=== PATIENT | female | born 1990 | race Hispanic/Latino ===

== ENCOUNTER 2017-04-11 19:15 | Observation (INO) | payer OTHER ==
[2017-04-11 19:37] VITALS: BP 128/79; PULSE 86; RESP 17; TEMP 97.9; O2SAT 98
--- NOTE | 2017-04-11 19:58 | ED PDOC ---
HPI: Psych/Substance Abuse Time Seen by Provider: 04/11/17 19:37 Chief Complaint (Nursing): Alcohol Ingestion Chief Complaint (Provider): "Yes" ED Caveat: Intoxicated History Per: EMS History/Exam Limitations: intoxication Onset/Duration Of Symptoms: Unknown Modifying Factor(s): Alcohol Additional History Per: EMS Additional Complaint(s): 26 yo F w unknown PMHx presents to ER via EMS for apparent etoh intoxication. She is currently lying on her left lateral, not awake, but is arousable to physical movement. She does deny any allergies, home medications, medical conditions, and medical/surgical history. She is unable to provide well formed answers, but can answer yes/no to pointed questions. She has a strong odor of alcohol on her breath and has vomit covering most of her clothing. As per EMS, she had been riding in a cab, visibly intoxicated, and vomited during the ride. She was removed by the cable assembler who called EMS. Past Medical History Vital Signs: Last Vital Signs Temp 97.9 F 04/11/17 19:35 Pulse 86 04/11/17 19:35 Resp 17 04/11/17 19:35 BP 128/79 04/11/17 19:35 Pulse Ox 98 04/11/17 19:35 - Family History Family History: States: No Known Family Hx - Allergies Allergies/Adverse Reactions: Allergies Allergy/AdvReac Type Severity Reaction Status Date / Time Unobtainable Allergy Verified 04/11/17 19:37 Review of Systems Review Of Systems: ROS cannot be obtained secondary to pt's inabilty to answer questions. Physical Exam - Reviewed Nursing Documentation Reviewed: Yes Vital Signs Reviewed: Yes - Physical Exam Appears: Positive for: No Acute Distress Head Exam: Positive for: ATRAUMATIC (no wounds, lacs, signs of trauma), NORMOCEPHALIC Skin: Positive for: Normal Color (no lacs, abrasions, wounds, contusions, or erythema noted), Warm, Dry. Negative for: Diaphoresis, Rash Eye Exam: Positive for: Normal appearance, PERRL Neck: Positive for: Supple, Trachea Midline Cardiovascular/Chest: Positive for: Regular Rate, Rhythm. Negative for: Edema Respiratory: Positive for: Normal Breath Sounds. Negative for: Stridor, Wheezing Pulses-Post. Tibialis (L): 2+ Pulses-Post. Tibialis (R): 2+ Pulses-Radial (L): 2+ Pulses-Radial (R): 2+ Gastrointestinal/Abdominal: Positive for: Bowel Sounds, Soft. Negative for: Tenderness, Distended, Guarding Back: Positive for: Normal Inspection (no wounds, contusions, lacs). Negative for: Vertebral Tenderness Extremity: Negative for: Pedal Edema, Calf Tenderness - Laboratory Results Result Diagrams: 04/11/17 20:46 04/11/17 20:46 - ECG O2 Sat by Pulse Oximetry: 98 - Progress ED Course And Treament: 26 yo F w unknown PMHx presents to ER via EMS for apparent etoh intoxication -CBC -CMP -etoh lvl -Upreg -NS 1L x1 -Zofran 4mg x1 -Will re evaluate patient shortly; Will re examine patient shortly for possibly different HPI or histories Update 2300: -Confirmed no known PMHx, no home medications, and benign HPI other than etoh consumption Disposition - Clinical Impression Clinical Impression: Alcohol intoxication - Disposition Disposition: Routine/Home Disposition Time: 01:30 Condition: STABLE
[2017-04-11] MEDS ORDERED: Sodium Chloride 0.9% 1,000 ML IV SCH (20:00)
[2017-04-11 20:51] LABS: HEMATOCRIT 39.8 % (34.0-47.0); MEAN CELL VOLUME 88.6 fl (81.0-99.0); MEAN CORPUSCULAR HEMOGLOBIN 29.6 pg (27.0-31.0); MEAN CORPUSCULAR HGB CONC 33.4 g/dL (33.0-37.0); RED CELL DISTRIBUTION WIDTH 13.5 % (11.5-14.5); WHITE BLOOD COUNT 6.3 K/uL (4.8-10.8)
[2017-04-11 21:01] LABS: ALB/GLOB RATIO 1.2 (1.0-2.1); ALKALINE PHOSPHATASE 43 U/L (38-126); ALT/SGPT 32 U/L (9-52); AST/SGOT 38 U/L (14-36); BILIRUBIN,TOTAL 0.1 mg/dl (0.2-1.3); BLOOD UREA NITROGEN 17 mg/dl (7-17); CALCIUM 8.3 mg/dL (8.4-10.2); CARBON DIOXIDE 23 mmol/L (22-30); GFR AFRICAN-AMERICAN > 60; GLUCOSE,RANDOM 95 mg/dL (65-105); POTASSIUM 3.6 MMOL/L (3.6-5.0); SODIUM 140 mmol/l (132-148); TOTAL PROTEIN 7.7 G/DL (6.3-8.2)
[2017-04-11 21:02] LABS: CHLORIDE 103 mmol/L (98-107)
[2017-04-11 21:10] LABS: ALCOHOL SERUM 347 mg/dl (0-10)
--- NOTE | 2017-04-12 01:23 | ED PDOC ---
- Laboratory Results Result Diagrams: 04/11/17 20:46 04/11/17 20:46 - ECG O2 Sat by Pulse Oximetry: 98 Medical Decision Making Medical Decision Making: Patien signed out to provider by Dr Bryant; pending sobriety At 1:15AM pt is AAO x3 and has steady gait with clear speech Patient is stable for dc home DX Alcohol intoxication Disposition - Clinical Impression Clinical Impression: Alcohol intoxication - POA Present On Arrival: None - Disposition Disposition: Routine/Home Disposition Time: 20:25 Condition: STABLE
== END 2017-04-12 01:21 | disposition home or self-care (01) ==
LOC: H.ER 19:15 → H.EROBSV 20:25
PROVIDERS: ADMIT Emergency Medicine; ATTEND Emergency Medicine
DX: F10.129 Alcohol abuse with intoxication, unspecified (principal)